=== PATIENT | female | born 1940 | race Caucasian/White ===

== ENCOUNTER 2017-06-15 14:19 | Emergency (ER) | payer OTHER, MEDICARE ==
[2017-06-15 14:42] VITALS: BP 134/67
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
[2017-06-15] MEDS ORDERED: IBUPROFEN 600 MG TABLET PO ONE (15:25)
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
[2017-06-15] MEDS ORDERED: ONDANSETRON 4 MG TAB.RAPDIS PO ONE (16:11)
== END 2017-06-15 17:14 | disposition home or self-care (01) ==
LOC: ER 14:19
DX: S20.211A Contusion of right front wall of thorax, initial encounter (principal); S60.222A Contusion of left hand, initial encounter; S60.219A Contusion of unspecified wrist, initial encounter; V47.6XXA Car passenger injured in collision with fixed or stationary object in traffic accident, initial encounter; R07.81 Pleurodynia; M25.532 Pain in left wrist; M79.642 Pain in left hand; I10 Essential (primary) hypertension; Z85.118 Personal history of other malignant neoplasm of bronchus and lung; Z85.828 Personal history of other malignant neoplasm of skin
CPT/HCPCS: 99284; 73130; 71101; 73110; L3908; S0119